=== PATIENT | female | born 1995 | race Caucasian/White ===

== ENCOUNTER → 2021-07-18 | Outpatient (CLI) | payer BC, OTHER ==
[~2021-07-18] MED LIST: CLARITIN10 M2 PO
== END ==
LOC: KOH-I 10:30
DX: G43.109 Migraine with aura, not intractable, without status migrainosus (principal)
CPT/HCPCS: 70450

== ENCOUNTER → 2022-02-18 | Outpatient (CLI) | payer BC, OTHER | LOC: EMI 11:08 | DX: G43.009 Migraine without aura, not intractable, without status migrainosus (principal); G44.89 Other headache syndrome | CPT/HCPCS: 70551 ==